=== PATIENT | male | born 1975 | race African-American/Black ===

== ENCOUNTER 2019-11-11 09:12 | Emergency (ER) | payer OTHER ==
[~2019-11-11] VITALS: Ht 177.8 cm; Wt 90.7 kg
[2019-11-11 09:18] VITALS: Ht 177.8 cm; Wt 90.7 kg
[2019-11-11 09:45] VITALS: BP 114/69
[2019-11-11 09:51] LABS: BASOPHIL % 0.8 % (0-2); PLATELET COUNT 185 x10^3mcL (130-400); RED CELL DISTRIBUTION WIDTH 13.7 % (11.5-14.5)
[2019-11-11 10:22] LABS: CALCIUM 8.6 mg/dL (8.5-10.1); CHLORIDE SERUM 102 mmol/L (98-107); CREATININE SERUM 1.1 mg/dL (0.7-1.3); GFR1 > 60 mL/min; GLUCOSE SERUM 86 mg/dL (74-106); POTASSIUM SERUM 4.1 mmol/L (3.5-5.1); SODIUM SERUM 138 mmol/L (136-145)
[2019-11-11 10:29] LABS: ALKALINE PHOSPHATASE 31 U/L (46-116); ALT/SGPT 63 U/L (16-63); AST/SGOT 80 U/L (15-37); BILIRUBIN TOTAL 1.01 mg/dL (0.20-1.00); TOTAL PROTEIN, SERUM 6.8 g/dL (6.4-8.2)
[2019-11-11 10:30] LABS: ALBUMIN 3.1 g/dL (3.4-5.0)
== END 2019-11-11 11:32 | disposition home or self-care (01) ==
LOC: ED 09:12
PROVIDERS: Emergency Medicine
DX: G40.909 Epilepsy, unspecified, not intractable, without status epilepticus (principal); S06.309D Unspecified focal traumatic brain injury with loss of consciousness of unspecified duration, subsequent encounter; Z88.8 Allergy status to other drugs, medicaments and biological substances; Y04.8XXD Assault by other bodily force, subsequent encounter
CPT/HCPCS: J1953